=== PATIENT | male | born 1945 | race Caucasian/White ===

== ENCOUNTER 2017-12-07 17:59 | Inpatient (IN) | payer MEDICARE ==
[~2017-12-07] VITALS: Ht 177.8 cm; Wt 77.1 kg
[~2017-12-07 17:59] MED LIST: ARTHRITIS TYLENOL; ASPIR 8181 MG PO; BENADRYL; CIMZIA400 MG/2 M; CONZIP200 MG PO; TRAMADOL PO; Z.0.AMLODIPINE BESY1 PO; Z.0.ATENOLOL50 MG PO; Z.0.FOLIC ACID1 MG PO; Z.0.OMEPRAZOLE40 MG PO; Z.0.PREDNISONE2.5 MG PO; Z.0.SAVELLA50 MG PO; Z.1.FISH OIL 1,2001 PO; Z.1.METHOTREXATE2.5 PO; [UNRECOGNIZED DRUG - OTHER] PO
[2017-12-07] MEDS ORDERED: VITAMIN D31 GM (19:30)
[2017-12-07] MEDS ORDERED: NEXIUM40 MG (19:30)
[2017-12-07] MEDS ORDERED: FISH OIL 1,0001 EAC3 (19:30)
[2017-12-07] MEDS ORDERED: VITAMINS (19:30)
[2017-12-07] MEDS ORDERED: CONZIP200 MG (19:30)
[2017-12-07] MEDS ORDERED: SAVILLA (19:30)
[2017-12-07] MEDS ORDERED: DIOVAN160 MG PO (19:30)
[2017-12-07] MEDS ORDERED: FOLIC ACID1 MG PO (19:30)
[2017-12-07] MEDS ORDERED: ATENOLOL50 MG (19:30)
[2017-12-07] MEDS ORDERED: ITRACONAZOLE100 MG (19:30)
[2017-12-07] MEDS ORDERED: AMLODIPINE BESYL5 MG PO (19:30)
[2017-12-07] MEDS ORDERED: VOLTAREN100 GM (19:30)
[2017-12-07] MEDS ORDERED: ASPIR 8181 MG (19:30)
[2017-12-07] MEDS ORDERED: PREDNISONE5 MG (19:30)
[2017-12-07 19:52] LABS: BASOPHILS # (AUTO) 0.1 (0.0-0.1); BASOPHILS % 0.6 % (0.0-1.0); EOSINOPHILS # (AUTO) 0.3 (0.0-0.4); EOSINOPHILS % 2.2 % (0.0-6.0); HEMATOCRIT 42.1 % (38.2-49.6); HEMOGLOBIN 13.9 g/dL (14.0-18.0); LYMPHOCYTES # (AUTO) 0.9 (1.0-3.2); LYMPHOCYTES % 8.2 % (18.0-39.1); MEAN CORPUSCULAR HEMOGLOBIN 31.2 pg (28-32); MEAN CORPUSCULAR VOLUME 94.4 fL (81-99); MONOCYTES # (AUTO) 0.6 (0.2-0.8); MONOCYTES % 5.2 % (4.4-11.3); NEUTROPHILS # (AUTO) 9.5 (2.1-6.9); PLATELET COUNT 209 x10e3/uL (140-360); RED BLOOD COUNT 4.46 x10e6/uL (4.3-5.7); RED CELL DISTRIBUTION WIDTH 13.5 % (11.7-14.4)
[2017-12-07 20:00] VITALS: BP 134/72
[2017-12-07] MEDS ORDERED: METOPROLOL SUCC50 MG PO (20:08)
[2017-12-07 20:15] LABS: ALBUMIN 3.4 g/dL (3.5-5.0); ALBUMIN/GLOBULIN RATIO 1.2 (0.8-2.0); ANION GAP 14.7 mmol/L (8-16); CALCIUM 9.2 mg/dL (8.4-10.2); CREATININE, SERUM 2.01 mg/dL (0.72-1.25); POTASSIUM 4.7 mmol/L (3.5-5.1)
[2017-12-07] MEDS ORDERED: VOLTAREM TP (20:44)
[2017-12-07] MEDS ORDERED: IBUPROFEN 600 MG TAB GT SCH (21:00)
[2017-12-07] MEDS ORDERED: SODIUM CHLORIDE 0.9% 250ML 250 ML ONE (21:15)
[2017-12-07] MEDS: CEFEPIME HCL 1 GM VIAL IV SCH (21:27)
[2017-12-07] MEDS: VANCOMYCIN 1GM/NS 250 ML 250 ML IV SCH (21:27)
[2017-12-07 23:40] VITALS: BP 134/72
[2017-12-08] VITALS (7 sets, daily range): BP systolic 120–147; BP diastolic 62–92
[2017-12-08] MEDS: CEFEPIME HCL 1 GM VIAL IV SCH ×2 (08:09→22:57)
[2017-12-08] MEDS: [UNRECOGNIZED DRUG - OTHER] PO SCH (09:00)
[2017-12-08] MEDS ORDERED: PREDNISONE 2.5 MG PO SCH (09:00)
[2017-12-08] MEDS: OMEGA PO SCH (09:00)
[2017-12-08] MEDS: FATTY ACIDS PO SCH (09:00)
[2017-12-08] MEDS: FISH OIL PO SCH (09:00)
[2017-12-08] MEDS ORDERED: [UNRECOGNIZED DRUG - OTHER] SCH (09:00)
[2017-12-08] MEDS: FOLIC ACID 1 MG TAB PO SCH (09:20)
[2017-12-08] MEDS: VALSARTAN 160 MG TAB PO SCH (09:20)
[2017-12-08] MEDS: PREDNISONE 5 MG TAB PO SCH ×2 (09:20→17:31)
[2017-12-08] MEDS: OMEGA 3 POLYUNSAT FATTY ACIDS 1000 MG SOFTGEL PO SCH (09:20)
[2017-12-08] MEDS: AMLODIPINE BESYLATE 5 MG TAB PO SCH (09:20)
[2017-12-08] MEDS: ATENOLOL 50 MG TAB PO SCH (09:20)
[2017-12-08] MEDS: SAVELLA 50MG TAB PO SCH ×2 (09:20→17:31)
[2017-12-08] MEDS: ASPIRIN 81 MG CHEW TAB PO SCH (09:20)
[2017-12-08] MEDS: MULTIVITAMINS/MINERALS TAB PO SCH (09:20)
[2017-12-08] MEDS: PANTOPRAZOLE SOD 40 MG TABEC PO SCH (09:20)
[2017-12-08] MEDS: METOPROLOL SUCCINATE 50 MG TAB XL PO SCH (10:12)
[2017-12-08] MEDS: ITRACONAZOLE 100 MG CAP PO SCH ×2 (10:20→17:31)
[2017-12-08] MEDS: VANCOMYCIN 1GM/NS 250 ML 250 ML IV SCH (22:57)
[2017-12-09] VITALS (7 sets, daily range): BP systolic 113–139; BP diastolic 65–89
--- NOTE | 2017-12-09 07:42 | History and Physical ---
REASON FOR ADMISSION: Redness and swelling of the leg. HISTORY OF PRESENT ILLNESS: This patient is a 72-year-old white male who I first met on October 12, 2017. He was referred to me because there was infection in his leg. He was seeing because he is immunocompromised. The patient grew pathology that was suggestive for a fungal infection versus AFB. The patient was referred to me because of that. The patient had this redness and rash on his right leg for some time. He does have underlying history of seborrheic keratosis. The patient has history of chronic kidney disease, hypertension, arthritis, coronary artery disease status post cardiac stent placement, osteoarthritis, low back surgery. Originally, we were waiting on the cultures and sensitivity, but I was concerned about AFB versus fungal. The patient does have underlying history of rheumatoid arthritis. He is on methotrexate and . I recommended to stop the immunomodulator medication, which he did. We waited 6 weeks and nothing grew, but review of pathology was consistent with fungal, so we treated him with itraconazole. He is coming to my office with worsening of the leg with redness and swelling, and there is pus coming from his leg, and so the patient was immunocompromised, and I felt he needed to be admitted for IV antibiotics, as he is going to do. The patient denies any history of trauma. He said he has been draining pus from his leg for the last few days before he came to see me. The patient is being admitted. PAST MEDICAL HISTORY: Rheumatoid arthritis. Infection of his leg. Chronic kidney disease. PAST SURGICAL HISTORY: As above. ALLERGIES: NKA. FAMILY HISTORY: Hypertension. SOCIAL HISTORY: Does not smoke, no drug abuse, no alcohol abuse. REVIEW OF SYSTEMS: Generally he is feeling fair is having some chills weak. HEENT he is arthritis pain is acting up. REVIEW OF SYSTEMS: GENERAL: He is feeling fair. He is having some chills, weak. His arthritis pain is acting up. HEENT: No visual changes, hearing changes. GI: There is no nausea, no vomiting, no diarrhea. CARDIAC: There is no arrhythmia. NEUROLOGIC: No seizure activity. SKIN: Besides the rash which he had on his legs, he denies any. PHYSICAL EXAMINATION GENERAL: Alert, oriented, does not seem to be in any acute distress. VITAL SIGNS: Stable, currently afebrile. HEENT: Not icteric. NECK: Supple. CHEST: Clear. HEART: S1 and S2, no murmur. ABDOMEN: Soft. EXTREMITIES: On the right leg, there is erythema, edema, and induration. I was able to squeeze less than 1 mL of pus. LABORATORY DATA: White count 11.43, hemoglobin 13.9, hematocrit 42. His platelets 209,000. Sodium 142, potassium 4.7, ____ 2.10, glucose 108. MEDICATIONS: He is on multivitamins, Diovan, prednisone 5 mg daily, fish oil, folic acid, Protonix. He is also on metoprolol succinate and as mentioned above. IMPRESSION: Cellulitis of the leg in a patient immunocompromised. Underlying chronic disease. Rheumatoid arthritis. History of fungal infection. RECOMMENDATIONS: Will put him on vancomycin and cefepime. Obtain wound for culture and sensitivity. Continue with itraconazole. Will follow with you. Job#: [id number]
[2017-12-09] MEDS: CEFEPIME HCL 1 GM VIAL IV SCH (08:10)
[2017-12-09] MEDS: FISH OIL PO SCH (09:00)
[2017-12-09] MEDS: [UNRECOGNIZED DRUG - OTHER] PO SCH (09:00)
[2017-12-09] MEDS: OMEGA PO SCH (09:00)
[2017-12-09] MEDS: FATTY ACIDS PO SCH (09:00)
[2017-12-09] MEDS: SAVELLA 50MG TAB PO SCH ×2 (09:03→17:34)
[2017-12-09] MEDS: AMLODIPINE BESYLATE 5 MG TAB PO SCH (09:03)
[2017-12-09] MEDS: VALSARTAN 160 MG TAB PO SCH (09:03)
[2017-12-09] MEDS: FOLIC ACID 1 MG TAB PO SCH (09:03)
[2017-12-09] MEDS: PANTOPRAZOLE SOD 40 MG TABEC PO SCH (09:03)
[2017-12-09] MEDS: MULTIVITAMINS/MINERALS TAB PO SCH (09:03)
[2017-12-09] MEDS: ASPIRIN 81 MG CHEW TAB PO SCH (09:03)
[2017-12-09] MEDS: OMEGA 3 POLYUNSAT FATTY ACIDS 1000 MG SOFTGEL PO SCH (09:03)
[2017-12-09] MEDS: ITRACONAZOLE 100 MG CAP PO SCH ×2 (09:03→17:34)
[2017-12-09] MEDS: ATENOLOL 50 MG TAB PO SCH (09:03)
[2017-12-09] MEDS: PREDNISONE 5 MG TAB PO SCH ×2 (09:03→17:34)
[2017-12-09] MEDS: METOPROLOL SUCCINATE 50 MG TAB XL PO SCH (09:05)
[2017-12-09] MEDS: VANCOMYCIN 1GM/NS 250 ML 250 ML IV SCH (20:27)
[2017-12-10] VITALS (9 sets, daily range): BP systolic 108–159; BP diastolic 68–84
[2017-12-10] MEDS: ASPIRIN 81 MG CHEW TAB PO SCH (09:01)
[2017-12-10] MEDS: MULTIVITAMINS/MINERALS TAB PO SCH (09:02)
[2017-12-10] MEDS: OMEGA 3 POLYUNSAT FATTY ACIDS 1000 MG SOFTGEL PO SCH (09:02)
[2017-12-10] MEDS: SAVELLA 50MG TAB PO SCH ×2 (09:02→16:46)
[2017-12-10] MEDS: PREDNISONE 5 MG TAB PO SCH ×2 (09:02→16:46)
[2017-12-10] MEDS: METOPROLOL SUCCINATE 50 MG TAB XL PO SCH (09:02)
[2017-12-10] MEDS: ATENOLOL 50 MG TAB PO SCH (09:02)
[2017-12-10] MEDS: PANTOPRAZOLE SOD 40 MG TABEC PO SCH (09:02)
[2017-12-10] MEDS: AMLODIPINE BESYLATE 5 MG TAB PO SCH (09:02)
[2017-12-10] MEDS: VALSARTAN 160 MG TAB PO SCH (09:02)
[2017-12-10] MEDS: ITRACONAZOLE 100 MG CAP PO SCH (09:02)
[2017-12-10] MEDS: FOLIC ACID 1 MG TAB PO SCH (09:02)
[2017-12-10] MEDS: CEFEPIME HCL 1 GM VIAL IV SCH (09:49)
[2017-12-10] MEDS: MUPIROCIN 2% OINT 22 GM TUBE TOP SCH (09:49)
[2017-12-10 10:35] LABS: BASOPHILS # (AUTO) 0.1 (0.0-0.1); BASOPHILS % 0.8 % (0.0-1.0); EOSINOPHILS # (AUTO) 0.4 (0.0-0.4); EOSINOPHILS % 4.1 % (0.0-6.0); HEMATOCRIT 41.6 % (38.2-49.6); LYMPHOCYTES # (AUTO) 1.8 (1.0-3.2); LYMPHOCYTES % 16.6 % (18.0-39.1); MEAN CORPUSCULAR HEMOGLOBIN 31.2 pg (28-32); MEAN CORPUSCULAR HGB CONC 33.2 g/dL (31-35); MEAN CORPUSCULAR VOLUME 94.1 fL (81-99); MONOCYTES # (AUTO) 1.1 (0.2-0.8); MONOCYTES % 10.2 % (4.4-11.3); NEUTROPHILS # (AUTO) 7.2 (2.1-6.9); NEUTROPHILS % 67.4 % (38.7-80.0); PLATELET COUNT 199 x10e3/uL (140-360); RED BLOOD COUNT 4.42 x10e6/uL (4.3-5.7); RED CELL DISTRIBUTION WIDTH 13.1 % (11.7-14.4)
[2017-12-10 10:46] LABS: ANION GAP 14.7 mmol/L (8-16); CALCIUM 9.6 mg/dL (8.4-10.2); CREATININE, SERUM 1.76 mg/dL (0.72-1.25); POTASSIUM 4.7 mmol/L (3.5-5.1)
[2017-12-10 10:55] LABS: HEMOGLOBIN 13.8 g/dL (14.0-18.0)
[2017-12-10] MEDS ORDERED: LIDOCAINE 1% W/EPINEPHRINE 20 ML VIAL ONE (13:34)
[2017-12-10] MEDS ORDERED: MUPIROCIN 2% OINT 22 GM TUBE ONE (14:23)
[2017-12-10] MEDS ORDERED: ACETAMINOPHEN/CODEINE 300MG - 30MG TAB PO PRN (15:15)
[2017-12-10] MEDS ORDERED: ONDANSETRON HCL INJ 2 MG/ML VIAL ONE (17:44)
[2017-12-10] MEDS ORDERED: PROPOFOL IV EMULSION 10 MG/ML 20 ML VIAL ONE (17:44)
[2017-12-10] MEDS ORDERED: FENTANYL CITRATE/PF 100MCG/2 ML INJ ONE (17:47)
[2017-12-10] MEDS ORDERED: MIDAZOLAM HCL 2 MG/2 ML VIAL ONE (17:47)
[2017-12-10] MEDS: VANCOMYCIN 1GM/NS 250 ML 250 ML IV SCH (21:49)
[2017-12-11 04:00] VITALS: BP 103/60
[2017-12-11 07:00] VITALS: BP 133/80
[2017-12-11 07:50] VITALS: BP 133/80
[2017-12-11] MEDS: CEFEPIME HCL 1 GM VIAL IV SCH (08:59)
[2017-12-11] MEDS: FOLIC ACID 1 MG TAB PO SCH (08:59)
[2017-12-11] MEDS: ASPIRIN 81 MG CHEW TAB PO SCH (08:59)
[2017-12-11] MEDS: VALSARTAN 160 MG TAB PO SCH (08:59)
[2017-12-11] MEDS: METOPROLOL SUCCINATE 50 MG TAB XL PO SCH (09:00)
[2017-12-11] MEDS ORDERED: ITRACONAZOLE 100 MG CAP PO SCH (09:00)
[2017-12-11] MEDS: SAVELLA 50MG TAB PO SCH (09:00)
[2017-12-11] MEDS: OMEGA 3 POLYUNSAT FATTY ACIDS 1000 MG SOFTGEL PO SCH (09:00)
[2017-12-11] MEDS: MULTIVITAMINS/MINERALS TAB PO SCH (09:00)
[2017-12-11] MEDS: ATENOLOL 50 MG TAB PO SCH (09:00)
[2017-12-11] MEDS: PREDNISONE 5 MG TAB PO SCH (09:00)
[2017-12-11] MEDS: AMLODIPINE BESYLATE 5 MG TAB PO SCH (09:00)
[2017-12-11] MEDS: MUPIROCIN 2% OINT 22 GM TUBE TOP SCH (09:00)
[2017-12-11] MEDS: PANTOPRAZOLE SOD 40 MG TABEC PO SCH (09:00)
[2017-12-11] MEDS ORDERED: DOXYCYCLINE HY100 MG PO (09:07)
[2017-12-11] MEDS ORDERED: ITRACONAZOLE100 MG PO (09:07)
[2017-12-11] MEDS ORDERED: CIPRO500 MG PO (09:08)
--- NOTE | 2017-12-12 03:23 | Discharge Summary ---
Mr. Fung is a pleasant 72-year-old gentleman with rheumatoid arthritis, immunocompromised, who was referred to Dr. Roger secondary to cellulitis of the lower extremity, concern was AFB and fungal. Immunosuppressant medications were stopped. Biopsy was done. After 6 weeks, pathology came back consistent with fungal infection. The patient was treated with itraconazole. Patient returned back to the office again complaining of an infection and cellulitis of the right lower extremity with the pus coming out from the nodules. Therefore, the patient was admitted to [facility] for evaluation and treatment. The patient was continued with the home medication, also itraconazole, cefepime, and vancomycin. It is noteworthy to mention that the patient has a history of seborrheic keratosis, chronic kidney disease, hypertension, rheumatoid arthritis, coronary artery disease, and cardiac stent placement. Plastic surgery was consulted. Wound culture came back negative so far; however, biopsy was done yesterday. Labs were monitored during the hospitalization and cellulitis of the lower extremity looks much better in redness and swelling. We will discharge the patient with doxycycline and Cipro for 2 weeks and itraconazole for 1 month. Patient is instructed to follow up with Dr. Roger in the office in 2 weeks. All of the discharge plans were discussed with the patient in the room, also discussed with Dr. Roger and the nurse. We will go ahead and remove all the lines and discharge the patient, have him continue the home medication and antibiotics and antifungal as mentioned above. The patient is being discharged in fair and stable condition. His vital signs at the time of discharge; his temperature was 96.5, pulse of 61, respirations 18, blood pressure 133/80, clinically in no acute distress, alert and oriented x3. Dictated by: CHRISTINA Navarrete Job#: [id number] TED
--- NOTE | 2017-12-14 14:58 | Operative Report ---
DATE OF PROCEDURE: PREOPERATIVE DIAGNOSIS: Cellulitis lower extremities. POSTOPERATIVE DIAGNOSIS: Pending final pathology and cultures. PROCEDURE PERFORMED: Surgical biopsy of skin and subcutaneous tissues right lower extremity x3. ANESTHESIA: Local with sedation. HISTORY: The patient is a 72-year-old male who was admitted for a cellulitis of an unknown etiology. He is apparently immunosuppressed, and there is concern that the presence of nodules in the right lower extremity could be either acid-fast bacilli or a fungal infection due to his immunocompromised state. The ID team has asked that we obtain surgical biopsies for anatomic pathology as well as multiple cultures. The risks, benefits and alternatives of treatment were discussed with the patient and the family. They are prepared to undergo the procedures outlined. DETAILS OF PROCEDURE: Patient was marked preoperatively in the holding area. He was brought to the operating theater. After the induction of adequate IV sedation, all of the proposed biopsy sites were then infiltrated with 1% Xylocaine with epinephrine. He was prepped and draped in a supine position, and a time out was performed. The procedure was begun by utilizing a 3-mm punch in the locations that were marked. The punch biopsies were full thickness through the skin and subcutaneous tissues. They were then sent for their respective studies. The wounds were closed with 4-0 nylon in an interrupted horizontal mattress fashion. Bactroban ointment and sterile dressings were applied. The estimated blood loss for the procedure was minimal. He was returned to the recovery room in satisfactory condition and then back to his hospital bed for further care and treatment. Job#: [id number] EV
--- OUTSIDE RECORDS SUMMARY | 2017-12-21 09:38 | XMS REPORT ---
Author Author [facility] Address Unknown Phone Unavailable Care Team Providers Care Breaker Oiler Name Role Phone NORA ROACH Unavailable Unavailable Problems This patient has no known problems. Allergies, Adverse Reactions, Alerts This patient has no known allergies or adverse reactions. Medications This patient has no known medications. Results Test Description Test Time Test Comments Text Results Atomic Results Result Comments CHEST 2 VIEWS [place] [address] Patient Name: JERO GORDILLO MR #: [id number] : 1945 Age/Sex: 71/M Req #: [id number] Adm Physician: NORA ROACH MD Ordered by: JEFF JIMENEZ MD Report #: [id number] Location: [facility] Room/Bed: [place] [address] Procedure: [id number] DX/CHEST 2 VIEWS Exam Date: Exam Time: REPORT STATUS: Signed CHEST 2 VIEWS, Technique: CHEST 2 VIEWS Comparison: None Clinical history: Preoperative DISCUSSION: Unremarkable appearance of the heart, mediastinum, lungs and pleural spaces. Degenerative changes and mild curvature of the spine are noted. IMPRESSION: No acute abnormality. Signed by: Dr Julian Hogan MD on 01/07/2017 6:43 AM Dictated By: JULIAN HOGAN MD Transcribed By: ROBER on 01/07/17642 COPY TO: JEFF JIMENEZ MD CT ABDOMEN/PELVIS WO [facility] [address] [address] Patient Name: JERO GORDILLO MR #: [id number] : 1945 Age/Sex: 71/M Req #: [id number] Adm Physician: NORA ROACH MD Ordered by: ZARA SULLIVAN MD Report #: [id number] Location: [facility] Room/Bed: [place] [address] Procedure: [id number] CT/CT ABDOMEN/PELVIS WO Exam Date: 01/05/17 Exam Time: 1333 REPORT STATUS: Signed EXAM: CT Abdomen and Pelvis WITHOUT contrast INDICATION: COMPARISON: None. TECHNIQUE: Abdomen and pelvis were scanned utilizing a multidetector helical scanner from the lung base to the pubic symphysis without administration of IV contrast. Absence of intravenous contrast decreases sensitivity for detection of focal lesions and vascular pathology. Coronal and sagittal reformations were obtained. Routine protocol was performed. IV CONTRAST: None ORAL CONTRAST: Water COMPLICATIONS: None RADIATION DOSE: Total DLP: 388.5 mGy*cm Estimated effective dose: (DLP x 0.015 x size factor) mSv CTDIvol has been reviewed. It is below the limits set by the Radiation Protocol Committee (RPC). FINDINGS: LINES and TUBES: None. LOWER THORAX: Unremarkable. Bilateral Bochdalek hernias, left more than right. HEPATOBILIARY: Unenhanced liver is unremarkable. No biliary ductal dilation. GALLBLADDER: No radio-opaque stones or sludge. No wall thickening. SPLEEN: No splenomegaly. PANCREAS: No focal masses or ductal dilatation. ADRENALS: No adrenal nodules KIDNEYS/URETERS: Atrophic right kidney. No hydronephrosis. 5 mm left superior pole calculus. There is adjacent 3 mm left periportal calculus. 3 mm left midpole calculus. 7 mm left mid to inferior pole calculus. GI TRACT: No abnormal distention, wall thickening, or evidence of bowel obstruction. Colonic diverticulosis without evidence of diverticulitis. Appendix is normal. Small hiatal hernia. PELVIC ORGANS/BLADDER: Bladder contains air and fluid fluid level with hyperdense fluid in the bottom. There is Holloway catheter in place. No perivesical fat stranding. LYMPH NODES: No lymphadenopathy. VESSELS: Moderate aortoiliac atherosclerotic disease. PERITONEUM / RETROPERITONEUM: No free air or fluid. BONES: Well-corticated proximal left femur lucency, probably benign. L4-L5 and L3-L4 disc spacers in place. L5-S1 degenerative changes. There are also degenerative changes of lower thoracic spine. SOFT TISSUES: Unremarkable. IMPRESSION: 1. Subcentimeter left nephrolithiasis. No evidence of obstructing urolithiasis. 2. Atrophic right kidney. 3. Bladder is distended, despite presence of Holloway catheter, containing air and fluid/fluid level which is probably dependent blood clot. Underlying bladder mass cannot be entirely excluded. Recommend correlation with cystoscopy. 4. Colonic diverticulosis without evidence of diverticulitis. Signed by: Dr. Don Cassidy MD on 01/05/2017 2:25 PM Dictated By: DON CASSIDY MD 24 Transcribed By: ROBER on 01/05/171424 COPY TO: ZARA SULLIVAN MD RENAL RETROPERITONEAL COMP [place] [address] Patient Name: JERO GORDILLO MR #: [id number] : 1945 Age/Sex: 71/M Req #: [id number] Adm Physician: NORA ROACH MD Ordered by: NORA ROACH MD Report #: [id number] Location: [facility] Room/Bed: [place] [address] Procedure: [id number] US/US RENAL RETROPERITONEAL COMP Exam Date: Exam Time: REPORT STATUS: Signed PROCEDURE: US RETROPERITONEAL ( KIDNEY ). COMPARISON: Abdominal CT 01/05/2017. INDICATIONS: GEORGINA vs. CKD TECHNIQUE: Bueno-scale and color sonographic images of the bilateral kidneys and bladder where obtained in transverse and longitudinal planes. FINDINGS: RIGHT KIDNEY: 6.9 x 3.9 x 3.6 cm, cortex 0.6 cm Cysts: None Solid masses: None Stones: None Hydronephrosis: None Echogenicity: Increased LEFT KIDNEY: 11.4 x 5.8 x 5.1 cm, cortex 1.2 cm Cysts: None Solid masses: None Stones: Small non-obstructing calculi are better seen on the prior CT. Hydronephrosis: None Echogenicity: Normal Bladder: Holloway catheter in place Prostate: Not visualized CONCLUSION: No hydronephrosis. Atrophic echogenic right kidney. Dictated by: Ricardo Alvarenga M.D. on 01/06/2017 at 16:25 Electronically approved by: Ricardo Alvarenga M.D. on 01/06/2017 at 16:25 Dictated By: RICARDO ALVARENGA MD [id number] Transcribed By: DOUGLAS on 01/06/17 4085 COPY TO: NORA ROACH MD
--- OUTSIDE RECORDS SUMMARY | 2017-12-21 09:38 | XMS REPORT | Summary of Care ---
Author Organization Unknown Address Unknown Phone Unavailable Encounter HQ Karen(VISH) [id number] Date(s): 08/15/13 - 08/15/13 [facility] [address] Discharge Disposition: Home Physician Attending: Maranda Rivera MD Reason for Visit 719.44 Problem List No data available for this section Allergies, Adverse Reactions, Alerts Substance Reaction Severity Status NKDA Active Medications No data available for this section Medications Administered During Your Visit No data available for this section Immunizations No data available for this section
--- OUTSIDE RECORDS SUMMARY | 2017-12-21 09:38 | XMS REPORT | Summary of Care ---
Author Author [facility] Organization [facility] Address Unknown Phone Unavailable Encounter HQ Encntr_alias(FIN) [id number] Date(s): 09/29/16 - 10/28/16 [facility] [address] [place] [address]- [phone] Discharge Disposition: Home or Self Care Attending Physician: Maranda Rivera MD Vital Signs No data available for this section Problem List No data available for this section Allergies, Adverse Reactions, Alerts Substance Reaction Severity Status NKDA Active Medications No data available for this section Results No data available for this section Immunizations No data available for this section Procedures No data available for this section Social History No data available for this section Assessment and Plan No data available for this section
--- OUTSIDE RECORDS SUMMARY | 2017-12-21 09:38 | XMS REPORT | Continuity of Care Document ---
Author Author Aditya parmar [facility] Interface Address Unknown Phone Unavailable Problems Problem Status Onset Date Classification Date Reported Comments Source DX: I12.9=HYPERTENSIVE CHRONIC KIDNEY DI Active 10/20/2017 [facility] M79.642 Active 09/29/2016 [facility] HYPERTENSIVE CHRONIC KIDNEY DISEASE [address] Active [facility] 719.44 Active [facility] Medications Medication Details Route Status Patient Instructions Ordering Provider Order Date Source Allergies, Adverse Reactions, Alerts Substance Category Reaction Severity Reaction type Status Date Reported Comments Source Immunizations Immunization Date Given Site Status Last Updated Comments Source Results Order Name Results Value Reference Range Date Interpretation Comments Source Abdomen/Pelvis wo IV contrast CT Abdomen/Pelvis wo IV contrast CT Clinical Indication: - I12.9 Hypertensive chronic kidney disease with stage 1 through stage 4 chronic kidney disease, or unspecified chronic kidney disease; Comparison: None TECHNIQUE: Helical imaging was performed diaphragm through the symphysis with multiplanar reformations obtained. IV CONTRAST: None GI CONTRAST: None CT imaging performed at this location utilizes radiation dose optimization techniques which include one or more of the following: -Automated exposure control -Adjustment of the mA and/or kV according to patient size -Use of iterative reconstruction technique CT Radiation Dose DLP 449 mGy-cm FINDINGS: LOWER CHEST: The lung bases are clear. SOLID ORGANS: The noncontrast features of the liver, spleen, pancreas, adrenal glands and gallbladder are not remarkable. The right kidney is markedly atrophic. On the left kidney demonstrates mild atrophy. There are 5 small nonobstructive calyceal calculi within the left kidney measuring up to 4 mm. No hydronephrosis. No solid renal lesion is otherwise suspected. BOWEL: No bowel obstruction or distention. Generous colonic stool volume suggesting constipation. Normal appendix. Sigmoid diverticulosis is prominent, however there is no inflammation to suggest diverticulitis or colitis. PERITONEUM: No free intraperitoneal fluid or air. RETROPERITONEUM: No adenopathy. The aorta is nonaneurysmal. Scattered abdominal aortic atherosclerotic plaque. PELVIS: Mildly enlarged prostate. No other pelvic mass. The urinary bladder is normal. MUSCULOSKELETAL: Advanced lumbar degenerative changes. Previous discectomy with metallic disc hardware at L3-4 and L4-5. IMPRESSION: Severely atrophic right kidney. Mildly atrophic left kidney. No hydronephrosis. Nonobstructive left nephrolithiasis. SL: [id number] 11/03/2017 - - Read by: Francisco Beasley MD Dictated Date/time: 11/03/17 15:39 Electronically Signed by: Francisco Beasley MD 11/03/17 15:44 FINAL REPORT [facility] Hand 2 views Bilateral DX Hand 2 views Bilateral DX Patient Name: JERO GORDILLO : 1945; Age: 71 years Male MR: [id number] Study: Hand 2 views Bilateral DX 09/29/2016 2:26 PM CDT CLINICAL INDICATION: M79.642 Pain in left hand M79.641 Pain in right hand - M79.642 Pain in left hand M79.641 Pain in right hand COMPARISON: Bilateral hand radiographs on 03/29/2012 FINDINGS: Views and laterality: Bilateral hands 2 views each Right: No displaced fracture or dislocation. The visualized joints are intact. No significant joint space narrowing or erosions. No gross soft tissue abnormalities. Left: No displaced fracture or dislocation. The visualized joints are intact. No significant joint space narrowing or erosions. No gross soft tissue abnormalities. IMPRESSION: No acute bony abnormalities. No significant change since 03/29/2012. SL: [id number] 09/29/2016 - - Read by: Kael Dueñas MD Dictated Date/time: 09/30/16 10:22 Electronically Signed by: Kael Dueñas MD 09/30/16 10:24 FINAL REPORT [facility] Hand AP lateral Hand AP lateral Examination: Left hand, 2 views History: 719.44 pain in joint hand Comparison: 01/15/2005 Findings: Multiple views of the left hand show no acute bony fracture, joint dislocation, or suspicious osseous erosion. Joint spaces are well preserved. Bony mineralization is normal. Soft tissue swelling of the index finger is seen. IMPRESSION: No acute bony abnormality of the left hand. SL: 14 08/15/2013 - - Read by: Sb Baxter MD Dictated Date/time: 08/15/13 11:29 Electronically Signed by: Sb Baxter MD 06/10/14 11:31 FINAL REPORT [facility] Vital Signs Vital Sign Value Date Comments Source Encounters Location Location Details Encounter Type Encounter Number Reason For Visit Attending Provider ADM Date DC Date Status Source [facility] Outpatient [id number] Maranda Rivera 08/15/2013 08/16/2013 [facility] Recurring [id number] Maranda Rivera 09/29/2016 10/29/2016 [facility] Procedures Procedure Code Date Perfomer Comments Source
--- OUTSIDE RECORDS SUMMARY | 2017-12-21 09:38 | XMS REPORT | Clinical Summary ---
Author Author Celso [facility] Organization [facility] Address Unknown Phone Unavailable Care Team Providers Care Energy Project Manager Name Role Phone Rik Barcaly MD PCP Unavailable Allergies Active Allergy Reactions Severity Noted Date Comments No Known Drug Allergies 06/11/2015 Current Medications Prescription Sig. Disp. Refills Start End Date Status Date VOLTAREN 1 % gel 1 application 4 (four) 03/19/19 Active times a day. 16 esomeprazole (NexIUM) 40 Take 40 mg by mouth every 05/04/19 Active MG capsule morning before breakfast. 16 folic acid (FOLVITE) 1 MG Take 1 mg by mouth daily. 05/26/19 Active tablet 16 methotrexate 2.5 MG 5 tablets daily 06/18/19 Active tablet 16 predniSONE (DELTASONE) 5 Take 5 mg by mouth 2 06/18/19 Active MG tablet (two) times a day. 16 CONZIP 200 mg capsule,ER 1 tablet daily. 03/19/19 Active biphase 24 hr 25-75 16 omega-3 fatty acids-fish 1 tablet daily. Take 1 03/08/19 Active oil 360-1,200 mg capsule capsule(s) every day by 11 oral route. certolizumab pegol Inject 200 mg under the Active (CIMZIA) 400 mg/2 mL (200 skin every 28 days. mg/mL x 2) syringe kit milnacipran (SAVELLA) 100 Take 1 tablet by mouth 30 tablet 5 06/25/19 Active mg tablet daily. 16 amLODIPine (NORVASC) 10 Take 0.5 tablets (5 mg 90 tablet 0 08/10/19 Active mg tablet total) by mouth daily. 18 hydroCHLOROthiazide Take 1 tablet (25 mg 30 tablet 11 08/20/20 08/21/19 Active (HYDRODIURIL) 25 MG total) by mouth daily. 18 19 tablet metoprolol succinate XL Take 1 tablet (100 mg 30 tablet 11 08/21/19 08/21/19 Active (TOPROL XL) 100 mg 24 hr total) by mouth daily. 18 19 tablet spironolactone Take 1 tablet (50 mg 30 tablet 11 09/11/19 09/11/19 Active (ALDACTONE) 50 MG tablet total) by mouth daily. 18 19 valsartan (DIOVAN) 160 MG TAKE 1 TABLET DAILY 90 tablet 3 10/02/19 Active tablet 18 clopidogrel (PLAVIX) 75 Take 75 mg by mouth 11 06/14/19 08/10/19 Discontin mg tablet daily. 16 18 ued dutasteride (AVODART) 0.5 Take 0.5 mg by mouth 06/05/19 08/10/19 Discontin mg capsule daily. 16 18 ued atenolol (TENORMIN) 50 MG Take 1 tablet (50 mg 90 tablet 3 07/29/19 03/12/19 Discontin tablet total) by mouth once 17 18 ued daily. valsartan (DIOVAN) 160 MG Take 1 tablet (160 mg 90 tablet 3 07/29/19 03/12/19 Discontin tablet total) by mouth once 17 18 ued daily. atenolol (TENORMIN) 50 MG Take 1 tablet (50 mg 90 tablet 1 03/12/19 05/30/19 Discontin tablet total) by mouth once 18 18 ued daily. valsartan (DIOVAN) 160 MG Take 1 tablet (160 mg 90 tablet 1 03/12/19 09/01/19 Discontin tablet total) by mouth once 18 18 ued daily. amLODIPine (NORVASC) 10 Take 10 mg by mouth 03/16/19 Discontin mg tablet daily. 18 ued amLODIPine (NORVASC) 10 Take 1 tablet (10 mg 90 tablet 0 03/16/19 06/03/19 Discontin mg tablet total) by mouth daily. 18 18 ued atenolol (TENORMIN) 50 MG TAKE 1 TABLET DAILY 90 tablet 3 05/30/19 08/10/19 Discontin tablet 18 18 ued amLODIPine (NORVASC) 10 TAKE 1 TABLET DAILY 90 tablet 0 06/03/19 08/10/19 Discontin mg tablet 18 18 ued atenolol (TENORMIN) 50 MG Take 1 tablet (50 mg 180 tablet 3 08/10/19 08/21/19 Discontin tablet total) by mouth 2 (two) 18 18 ued times a day. amLODIPine (NORVASC) 10 TAKE 1 TABLET DAILY 90 tablet 0 08/31/19 09/01/19 Discontin mg tablet 18 18 ued valsartan (DIOVAN) 160 MG Take 2 tablets (320 mg 90 tablet 1 09/01/19 10/02/19 Discontin tablet total) by mouth daily. 18 18 ued Active Problems Problem Noted Date Lumbosacral radiculopathy 08/09/2017 Claudication ([facility]) 06/11/2015 Constipation 06/11/2015 Depression 06/11/2015 Eczema 06/11/2015 Disc disorder of lumbar region 04/11/2013 Allergic rhinitis 04/11/2013 Elevated prostate specific antigen (PSA) 04/29/2012 Essential tremor 10/22/2011 Angina pectoris ([facility]) 07/23/2011 Chronic kidney disease, stage III (moderate) ([facility]) 07/23/2011 Essential hypertension 11/25/2010 Malaise and fatigue 11/25/2010 Anemia 09/01/2010 Gastroesophageal reflux disease 09/01/2010 Rheumatoid arthritis ([facility]) 09/01/2010 Encounters Date Type Specialty Care Team Description 10/01/2017 Refill Internal Medicine Rik Barclay MD 09/10/2017 Orders Only Access Rik Barclay MD 09/10/2017 Telephone Internal Rik Davenport MD 08/31/2017 Orders Only Internal Rik Davenport MD 08/31/2017 Orders Only Internal Rik Davenport MD 08/30/2017 Refill Internal Rik Davenport MD 08/20/2017 Orders Only Internal Medicine Rik Barclay MD 08/12/2017 Orders Only Internal Medicine Darlin Cardona MA 08/09/2017 Office Visit Internal Medicine Rik Barclay MD Encounter for general adult medical examination with abnormal findings (Primary Dx); Essential hypertension; Essential tremor; Rheumatoid arthritis involving multiple sites with positive rheumatoid factor; Trochanteric bursitis of left hip; Erectile dysfunction, unspecified erectile dysfunction type; Screening cholesterol level 06/02/2017 Refill Internal Rik Davenport MD 05/29/2017 Refill Internal Medicine Rik Barclay MD 03/16/2017 Refill Internal Medicine Darlin Cardona MA 03/12/2017 Refill Internal Medicine Darlin Cardona MA 01/01/2017 Hospital Radiology Alison Reynolds MD Myelopathy Encounter 01/01/2017 [facility] Radiology Alison Reynolds MD Lumbar radiculopathy; Encounter Myelopathy 01/01/2017 Hospital Radiology Alison Reynolds MD Lumbar radiculopathy; Encounter Myelopathy 12/31/2016 Ancillary Access Alison Reynolds MD Myelopathy Orders 12/28/2016 Procedure Pass Radiology 12/28/2016 Transcribe Access Alison Reynolds MD Lumbar radiculopathy Orders (Primary Dx); Myelopathy 12/21/2016 [facility] Radiology Rik Barclay MD Pseudoclaudication Encounter 12/10/2016 Procedure Pass Radiology 12/10/2016 Orders Only Internal Medicine Rik Barclay MD Pseudoclaudication (Primary Dx) after 12/06/2016 Immunizations Name Dates Previously Given Next Due FLUZONE HIGH-DOSE PF 12/06/2016, 10/31/2015, 01/06/2015, 12/05/2013 Pneumococcal Conjugate 04/22/2015 13-Valent Pneumococcal 07/28/2016 Polysaccharide Family History Medical History Relation Name Comments Diabetes Father Heart disease Father Dementia Maternal Grandmother Dementia Mother Diabetes Paternal Grandmother COPD Sister Lung disease Sister Macular degeneration Sister Other Sister brain cyst Relation Name Status Comments Father Maternal Grandfather Maternal Grandmother Mother Paternal Grandfather Paternal Grandmother Sister Sister Alive Social History Tobacco Use Types Packs/Day Years Used Date Never Smoker Smokeless Tobacco: Never Used Sex Assigned at Date Recorded Not on file Last Filed Vital Signs Vital Sign Reading Time Taken Blood Pressure 150/91 08/09/2017 4:42 PM CDT Pulse 78 08/09/2017 4:42 PM CDT Temperature - - Respiratory Rate - - Oxygen Saturation - - Inhaled Oxygen - - Concentration Weight 77.3 kg (170 lb 6.4 oz) 08/09/2017 4:42 PM CDT Height 180.3 cm (5' 11") 08/09/2017 4:42 PM CDT Body Mass Index 23.77 08/09/2017 4:42 PM CDT Plan of Treatment Health Maintenance Due Date Last Done Comments SHINGRIX VACCINE (#1) 07/26/1995 ZOSTER VACCINE 2005 INFLUENZA VACCINE 10/06/2017 12/06/2016, 12/06/2016, 10/31/2015, Additional history exists COLON CANCER SCREENING 10/06/2021 10/06/2016, 06/11/2016, 11/03/2015 PNEUMOCOCCAL-13 Completed 04/22/2015, 04/22/2015 PNEUMOCOCCAL Completed 07/28/2016 POLYSACCHARIDE VACCINE AGE 65 AND OVER Procedures Procedure Name Priority Date/Time Associated Diagnosis Comments MISCELLANSOUS IMAGING Routine 09/10/2017 RESULT 12:00 AM CDT TESTOSTERONE LEVEL, FREE Routine 08/09/2017 Erectile dysfunction, Results for this AND TOTAL, MALE 5:24 PM CDT unspecified erectile procedure are in the dysfunction type results section. URINALYSIS, COMPLETE, Routine 08/09/2017 Essential hypertension Results for this WITH REFLEX TO CULTURE 5:24 PM CDT procedure are in the results section. LDL CHOLESTEROL, DIRECT Routine 08/09/2017 Screening cholesterol Results for this 5:24 PM CDT level procedure are in the results section. HDL CHOLESTEROL Routine 08/09/2017 Screening cholesterol Results for this 5:24 PM CDT level procedure are in the results section. CHOLESTEROL Routine 08/09/2017 Screening cholesterol Results for this 5:24 PM CDT level procedure are in the results section. COMPREHENSIVE METABOLIC Routine 08/09/2017 Essential hypertension Results for this PANEL 5:24 PM CDT procedure are in the results section. CBC WITH PLATELET AND Routine 08/09/2017 Essential hypertension Results for this DIFFERENTIAL 5:24 PM CDT procedure are in the results section. MRI CERVICAL SPINE WO Routine 01/01/2017 Myelopathy Results for this CONTRAST 2:58 PM CDT procedure are in the results section. CT LUMBAR SPINE WO Routine 01/01/2017 Lumbar radiculopathy Results for this CONTRAST 2:35 PM CDT Myelopathy procedure are in the results section. XR LUMBAR SPINE COMPLETE Routine 01/01/2017 Lumbar radiculopathy Results for this W BENDING 1:48 PM CDT Myelopathy procedure are in the results section. MRI LUMBAR SPINE WO Routine 12/21/2016 Pseudoclaudication Results for this CONTRAST 2:45 PM CDT procedure are in the results section. after 12/06/2016 Results * Miscellaneous Imaging Result (09/10/2017) Specimen Blood Narrative Performed At * URINALYSIS, COMPLETE, WITH REFLEX TO CULTURE (08/09/2017 5:24 PM) Color, UA YELLOW YELLOW [facility] [place] Appearance CLEAR CLEAR [facility] [place] Specific gravity, urine 1.025 1.001 - 1.035 [facility] [place] pH, urine 6.0 5.0 - 8.0 [facility] [place] Glucose, urine NEGATIVE NEGATIVE [facility] [place] Bilirubin, UA NEGATIVE NEGATIVE [facility] [place] Ketones, UA NEGATIVE NEGATIVE [facility] [place] Occult blood, urine NEGATIVE NEGATIVE [facility] [place] Protein, UA NEGATIVE NEGATIVE [facility] [place] Nitrite, UA NEGATIVE NEGATIVE [facility] [place] Leukocyte esterase, UA NEGATIVE NEGATIVE [facility] [place] WBC, UA NONE SEEN < OR=5 /HPF [facility] [place] RBC, UA 0-2 < OR=2 /HPF [facility] [place] Squamous epithelial NONE SEEN < OR=5 /HPF [facility] cells, [facility] [place] Bacteria, UA NONE SEEN NONE SEEN /HPF [facility] [place] Hyaline casts, UA NONE SEEN NONE SEEN /LPF [facility] [place] Reflex NO CULTURE INDICATED [facility] [place] Narrative Performed At FASTING:NO [facility] FASTING: NO Other Results Text Performing Organization Information: Site ID: [id number] Name: [facility] Lab Address: [address] [place] [phone] Director: Shira Quijano Performing Organization Address City/State/Zipcode Phone Number [facility] [place] [phone] * CBC with platelet and differential (08/09/2017 5:24 PM) WBC 12.4 (H) 3.8 - 10.8 Thousand/uL [facility] [place] RBC 5.38 4.20 - 5.80 Million/uL [facility] [place] HGB 15.5 13.2 - 17.1 g/dL [facility] [place] HCT 47.0 38.5 - 50.0 % [facility] [place] MCV 87.4 80.0 - 100.0 fL [facility] [place] MCH 28.8 27.0 - 33.0 pg [facility] [place] MCHC 33.0 32.0 - 36.0 g/dL [facility] [place] RDW 16.6 (H) 11.0 - 15.0 % [facility] [place] Platelet count 205 140 - 400 Thousand/uL [facility] Comment: [place] Review of the peripheral smear reveals adequate numbers of platelets. MPV 9.7 7.5 - 12.[address] [facility] Neutrophils, absolute 9,337 (H) 1,500 - 7,800 cells/uL [facility] [place] Lymphocytes, absolute 1,364 850 - 3,900 cells/uL [facility] [place] Monocytes, absolute 1,302 (H) 200 - 950 cells/uL [facility] [place] Eosinophils, absolute 285 15 - 500 cells/uL [facility] [place] Basophils, absolute 112 0 - 200 cells/uL [facility] [place] Neutrophils 75.3 % [facility] Lymphocytes 11.0 % [facility] Monocytes 10.5 % [facility] Eosinophils 2.3 % [facility] Basophils + RC 0.9 % [facility] [place] Nucleated RBC Comment: [facility] Review of peripheral smear [place] confirms automated results. Specimen Blood Narrative Performed At FASTING:NO [facility] FASTING: NO Other Results Text Performing Organization Information: Site ID: [id number] Name: [facility] Lab Address: [address] [place] [phone] Director: Shira Quijano Performing Organization Address [facility] Phone Number [facility] [address] [phone] * Testosterone level, free and total, male (08/09/2017 5:24 PM) Testosterone, total, 370 250 - 1,100 ng/dL [facility] lc/ms/ms Comment: NEAL TARN Males: Men with clinically significant hypogonadal symptoms and testosterone values repeatedly in the range of the 200-300 ng/dL or less, may benefit from testosterone treatment after adequate risk and benefits counseling. Testosterone, free 45.9 30.0 - 135.0 pg/mL [facility] Comment: NE[place] TRAN This test was developed and its analytical performance characteristics have been determined by [facility]. It has not been cleared or approved by the US Food and Drug Administration. This assay has been validated pursuant to the CLIA regulations and is used for clinical purposes. Specimen Blood Narrative Performed At FASTING:NO [facility] FASTING: NO Other Results Text Performing Organization Information: Site ID: [id number] Name: [facility] Address: [address] [place] [address] Director: Barber Murray M.D., Ph.D Performing Organization Address City/[facility]/Zipcode Phone Number [facility] [place] [phone] [place] [address] RAU[place] * LDL cholesterol, direct (08/09/2017 5:24 PM) LDL Direct 130 (H) <100 mg/dL [facility] Comment: [place] Greatly elevated Triglycerides values (>1200 mg/dL) interfere with the dLDL assay. As no Triglycerides testing was ordered, interpret results with caution. Desirable range <100 mg/dL for primary prevention; <70 mg/dL for patients with CHD or diabetic patients with > or=2 CHD risk factors. Specimen Blood Narrative Performed At FASTING:NO [facility] FASTING: NO Other Results Text Performing Organization Information: Site ID: [id number] Name: [facility] Address: [address] [place] [phone] Director: Shira Quijano Performing Organization Address [facility] Phone Number [place] [address] * HDL cholesterol (08/09/2017 5:24 PM) HDL cholesterol 47 >40 mg/dL [facility] [place] Specimen Blood Narrative Performed At FASTING:NO [facility] FASTING: NO Other Results Text Performing Organization Information: Site ID: [id number] Name: [facility] Address: [address] [place] [phone] Director: Shira Quijano Performing Organization Address [facility] Phone Number [place] [address] * Cholesterol (08/09/2017 5:24 PM) Cholesterol, total 217 (H) <200 mg/dL [facility] [place] Specimen Blood Narrative Performed At FASTING:NO [facility] FASTING: NO Other Results Text Performing Organization Information: Site ID: [id number] Name: [facility] Address: [address] [place] [phone] Director: Shira Quijano Performing Organization Address [facility] Phone Number [place] [address] * Comprehensive metabolic panel (08/09/2017 5:24 PM) Glucose 96 65 - 139 mg/dL [facility] Comment: [place] Non-fasting reference interval BUN, whole blood 33 (H) 7 - 25 mg/dL [facility] Creatinine 2.22 (H) 0.70 - 1.18 mg/dL [facility] Comment: [place] For patients >49 years of age, the reference limit for Creatinine is approximately 13% higher for people identified as -Fijian. EGFR Non-Afr. [place]ian 29 (L) > OR=60 mL/min/1.73m2 [facility] [place] EGFR 33 (L) > OR=60 mL/min/1.73m2 [facility] BUN/creatinine ratio 15 6 - 22 (calc) [facility] Sodium 141 135 - 146 mmol/L [facility] Potassium 4.3 3.5 - 5.3 mmol/L [facility] Chloride 103 98 - 110 mmol/L [facility] CO2 31 20 - 31 mmol/L [facility] [place] Calcium 10.1 8.6 - 10.3 mg/dL [facility] [place] Protein 6.3 6.1 - 8.1 g/dL [facility] Albumin, S 4.1 3.6 - 5.1 g/dL [facility] Globulin, total 2.2 1.9 - 3.7 g/dL (calc) [facility] Albumin/globulin ratio 1.9 1.0 - 2.5 (calc) [facility] Total bilirubin 0.5 0.2 - 1.2 mg/dL [facility] Alkaline phosphatase 49 40 - 115 U/L [facility] AST 21 10 - 35 U/L [facility] ALT 25 9 - 46 U/L [facility] Specimen Blood Narrative Performed At FASTING:NO [facility] FASTING: NO Other Results Text Performing Organization Information: Site ID: [id number] Name: [facility] Lab Address: [address] [place] [phone] Director: Shira Quijano Performing Organization Address City/State/[place] [phone] * MRI Cervical Spine Wo Contrast (01/01/2017 2:58 PM) Narrative Performed At [facility] EXAMINATION:MRI CERVICAL SPINE WO CONTRAST CLINICAL HISTORY:G95.9 Disease of spinal cordunspecified, M54.16G95.9 COMPARISON: None. FINDINGS: Noncontrast MRI of the cervical spine is interpreted. There is elevated T2 signal in the farooq which likely represents chronic small vessel ischemic change. The cervical cord is normal in volume and signal intensity. There is slight reversal normal cervical lordosis. Bone marrow signal is within normal limits. There is mild arthrosis of the median atlantoaxial joint. C2-3: Moderate left facet arthrosis with mild left foraminal stenosis. C3-4: Slight grade 1 anterolisthesis. Moderate left facet arthrosis. Moderate left foraminal stenosis. C4-5: Prominent loss of disc height with mild grade 1 retrolisthesis. Anterior endplate spurring. Mild uncovertebral hypertrophy on the right. Mild right foraminal stenosis. Mild canal narrowing. C5-6: Moderate spondylosis with grade 1 retrolisthesis. Mild canal stenosis with flattening of ventral cord contour. Subarachnoid space is preserved. Suspicion for shallow superimposed central disc protrusion. Mild bilateral foraminal stenosis. C6-7: Moderate loss of disc height. Mild endplate spurring. C7-T1: Mild right facet arthrosis. Slight grade 1 anterolisthesis. The paraspinous soft tissues are unremarkable. IMPRESSION: Moderate cervical spondylosis. No significant canal or foraminal stenosis. The cervical cord is normal in volume and signal intensity. [facility]-[id number] Procedure Note [facility], Radiology Results Incoming - 01/01/2017 3:41 PM CDT EXAMINATION: MRI CERVICAL SPINE WO CONTRAST CLINICAL HISTORY: G95.9 Disease of spinal cord unspecified, M54.16 G95.9 COMPARISON: None. FINDINGS: Noncontrast MRI of the cervical spine is interpreted. There is elevated T2 signal in the farooq which likely represents chronic small vessel ischemic change. The cervical cord is normal in volume and signal intensity. There is slight reversal normal cervical lordosis. Bone marrow signal is within normal limits. There is mild arthrosis of the median atlantoaxial joint. C2-3: Moderate left facet arthrosis with mild left foraminal stenosis. C3-4: Slight grade 1 anterolisthesis. Moderate left facet arthrosis. Moderate left foraminal stenosis. C4-5: Prominent loss of disc height with mild grade 1 retrolisthesis. Anterior endplate spurring. Mild uncovertebral hypertrophy on the right. Mild right foraminal stenosis. Mild canal narrowing. C5-6: Moderate spondylosis with grade 1 retrolisthesis. Mild canal stenosis with flattening of ventral cord contour. Subarachnoid space is preserved. Suspicion for shallow superimposed central disc protrusion. Mild bilateral foraminal stenosis. C6-7: Moderate loss of disc height. Mild endplate spurring. C7-T1: Mild right facet arthrosis. Slight grade 1 anterolisthesis. The paraspinous soft tissues are unremarkable. IMPRESSION: Moderate cervical spondylosis. No significant canal or foraminal stenosis. The cervical cord is normal in volume and signal intensity. [facility]-[id number] Performing Organization Address City/State/Zipcode Phone Number [facility] [phone] [place] [address] * CT Lumbar Spine Wo Contrast (01/01/2017 2:35 PM) Narrative Performed At EXAMINATION:CT LUMBAR SPINE WO CONTRAST [facility] CLINICAL HISTORY:M54.16 Radiculopathylumbar region, G95.9 Disease of spinal cordunspecified, M54.16G95.9 COMPARISON: MRI lumbar spine dated 12/21/2016. Lumbar spine series dated 01/01/2017. FINDINGS: Noncontrast CT lumbar spine is interpreted. CT imaging was performed with iterative reconstruction techniques and/or automated exposure control to reduce radiation dose. Evaluation of the canal contents is limited by the absence of intrathecal contrast. Lumbar vertebral heights are preserved. No displaced fracture is seen. Again noted are interbody fusions at L3-4 and L4-5. Bridging of bone is not definitely seen across the interbody space at L3-4. Bone bridging the interbody space at L4-5 is present. There are facetectomies on the left at L3-4 and L4-5 as well as on the right at L4-5 and partially at L3-4. L1-2: Unremarkable. L2-3: Unremarkable. L3-4: Postoperative changes as described. Mild right foraminal stenosis. L4-5: Postoperative level. Mild right foraminal stenosis. L5-S1: Prominent loss of disc height. Disc vacuum phenomenon. Mild endplate irregularity. Minimal dorsal endplate spurring. Mild bilateral foraminal stenosis. There is deconditioning the paraspinous musculature. There is atrophy of the right kidney. Atherosclerotic calcifications are present within the abdominal aorta. IMPRESSION: Mild lumbar spondylosis without significant canal or foraminal stenosis. Postoperative changes of interbody fusions and facetectomies at L3-4 and L4-5. No definite bridging bone is identified at the L3-4 interbody space. Bone does bridge the interbody space at L4-5. [facility]-[id number] Procedure Note [facility] Interface, Radiology Results Incoming - 01/01/2017 4:56 PM CDT EXAMINATION: CT LUMBAR SPINE WO CONTRAST CLINICAL HISTORY: M54.16 Radiculopathy lumbar region, G95.9 Disease of spinal cord unspecified, M54.16 G95.9 COMPARISON: MRI lumbar spine dated 12/21/2016. Lumbar spine series dated 01/01/2017. FINDINGS: Noncontrast CT lumbar spine is interpreted. CT imaging was performed with iterative reconstruction techniques and/or automated exposure control to reduce radiation dose. Evaluation of the canal contents is limited by the absence of intrathecal contrast. Lumbar vertebral heights are preserved. No displaced fracture is seen. Again noted are interbody fusions at L3-4 and L4-5. Bridging of bone is not definitely seen across the interbody space at L3-4. Bone bridging the interbody space at L4-5 is present. There are facetectomies on the left at L3-4 and L4-5 as well as on the right at L4-5 and partially at L3-4. L1-2: Unremarkable. L2-3: Unremarkable. L3-4: Postoperative changes as described. Mild right foraminal stenosis. L4-5: Postoperative level. Mild right foraminal stenosis. L5-S1: Prominent loss of disc height. Disc vacuum phenomenon. Mild endplate irregularity. Minimal dorsal endplate spurring. Mild bilateral foraminal stenosis. There is deconditioning the paraspinous musculature. There is atrophy of the right kidney. Atherosclerotic calcifications are present within the abdominal aorta. IMPRESSION: Mild lumbar spondylosis without significant canal or foraminal stenosis. Postoperative changes of interbody fusions and facetectomies at L3-4 and L4-5. No definite bridging bone is identified at the L3-4 interbody space. Bone does bridge the interbody space at L4-5. [facility] [id number] Performing Organization Address City/State/Zipcode Phone Number [facility] [address] [place] [address] * XR Lumbar Spine Complete W Flex and Ext (01/01/2017 1:48 PM) Narrative Performed At EXAMINATION: XR LUMBAR SPINE COMPLETE W FLEX & EXTEND [facility] CLINICAL HISTORY: M54.16 Radiculopathylumbar region, G95.9 Disease of spinal cordunspecified, M54.16G95.9 COMPARISON:None IMPRESSION: 8 views of lumbar spine including dynamic lateral radiographs are submitted. There is convex left scoliotic curvature of the thoracolumbar region with a Cuevas measuring approximately 20 degrees spanning T10-L2. A mild rotational component is present. There are interbody fusions of L3-4 and L4-5 with metallic interbody cages present. Interbody fusions appear immature. Prominent disc degenerative changes are noted at L5-S1. Vertebral heights are preserved. No displaced fracture is seen. Alignment is anatomic. There is no significant change in alignment on dynamic lateral radiographs. Range of motion is somewhat limited. [id number] Procedure Note Interface, Radiology Results Incoming - 01/01/2017 2:48 PM CDT EXAMINATION: XR LUMBAR SPINE COMPLETE W FLEX & EXTEND CLINICAL HISTORY: M54.16 Radiculopathy lumbar region, G95.9 Disease of spinal cord unspecified, M54.16 G95.9 COMPARISON: None IMPRESSION: 8 views of lumbar spine including dynamic lateral radiographs are submitted. There is convex left scoliotic curvature of the thoracolumbar region with a Cuevas measuring approximately 20 degrees spanning T10-L2. A mild rotational component is present. There are interbody fusions of L3-4 and L4-5 with metallic interbody cages present. Interbody fusions appear immature. Prominent disc degenerative changes are noted at L5-S1. Vertebral heights are preserved. No displaced fracture is seen. Alignment is anatomic. There is no significant change in alignment on dynamic lateral radiographs. Range of motion is somewhat limited. 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 FINDINGS: L5-S1: There is marked disc space narrowing, spondylosis and degenerative change in the disc. There are postoperative laminotomy changes on the left. There is mild dorsal spondylosis and bulging of the disc with possible minimal central disc protrusion. There is also minimal extension of the disc into the inferior neural foramen on the left where there could be a minimal inferior foraminal disc protrusion. There is very mild foraminal narrowing on the left. There is slight posterior positioning of the S1 nerve root on the left compared the right with a larger root sleeve complex on the left compared to the right but there is no definite nerve root compression demonstrated. The posterior positioning of the left S1 nerve root sleeve complex may relate to postoperative change as there is no definite structure displacing the root sleeve complex. There is mild degenerative change in the facet joints. L4-5: There are postop changes with threaded cage devices in the disc space bilaterally. There are postoperative laminotomy changes greater on the left. Facet joint on the left has been partially resected. There are otherwise degenerative changes in the facet joints bilaterally which may actually be fused. There is considerable metal artifact. There is grade 1 spondylolisthesis of L4 relation L5. There is no thecal sac stenosis. The neural foramen on the right is not well demonstrated because of artifact. There is no foraminal stenosis on the left side. L3-4: There are postop changes with bilateral threaded cage devices in the disc space. There are postoperative laminotomy changes bilaterally and partial resection of the facet joint at least on the left side. The neural foramen on the right is obscured by metal artifact. There is an appearance of mild foraminal stenosis on the right although this may be over exaggerated. There is no spinal canal or left foraminal stenosis. There is question of minimal spondylolisthesis of L3 in relation L4. L2-3 and L1-2: There is some loss of normal signal intensity in the discs at these levels. There are minimal hypertrophic changes the facet joints. There is no stenosis. Imaging of the thoracolumbar junction in the sagittal plane only demonstrates marked disc space narrowing, spondylosis and degenerative change in the disc at T11-12 where there is a minimal disc bulge without stenosis. There is no evidence of a conus lesion. IMPRESSION: Postoperative and degenerative changes as described above. There is no spinal stenosis demonstrated. There is a suggestion of at least mild foraminal stenosis on the right at L3-4 although this may be over exaggerated due to metal artifact. There is very mild foraminal narrowing on the left at L5-S1. [facility]-[id number] Procedure Note Hm Interface, Radiology Results Incoming - 12/21/2016 3:29 PM CDT EXAMINATION: MRI LUMBAR SPINE WO CONTRAST CLINICAL HISTORY: M48.062 Spinal stenosis lumbar region with neurogenic claudication, pseudoclaudication. Lumbosacral radiculopathy COMPARISON: None. FINDINGS: L5-S1: There is marked disc space narrowing, spondylosis and degenerative change in the disc. There are postoperative laminotomy changes on the left. There is mild dorsal spondylosis and bulging of the disc with possible minimal central disc protrusion. There is also minimal extension of the disc into the inferior neural foramen on the left where there could be a minimal inferior foraminal disc protrusion. There is very mild foraminal narrowing on the left. There is slight posterior positioning of the S1 nerve root on the left compared the right with a larger root sleeve complex on the left compared to the right but there is no definite nerve root compression demonstrated. The posterior positioning of the left S1 nerve root sleeve complex may relate to postoperative change as there is no definite structure displacing the root sleeve complex. There is mild degenerative change in the facet joints. L4-5: There are postop changes with threaded cage devices in the disc space bilaterally. There are postoperative laminotomy changes greater on the left. Facet joint on the left has been partially resected. There are otherwise degenerative changes in the facet joints bilaterally which may actually be fused. There is considerable metal artifact. There is grade 1 spondylolisthesis of L4 relation L5. There is no thecal sac stenosis. The neural foramen on the right is not well demonstrated because of artifact. There is no foraminal stenosis on the left side. L3-4: There are postop changes with bilateral threaded cage devices in the disc space. There are postoperative laminotomy changes bilaterally and partial resection of the facet joint at least on the left side. The neural foramen on the right is obscured by metal artifact. There is an appearance of mild foraminal stenosis on the right although this may be over exaggerated. There is no spinal canal or left foraminal stenosis. There is question of minimal spondylolisthesis of L3 in relation L4. L2-3 and L1-2: There is some loss of normal signal intensity in the discs at these levels. There are minimal hypertrophic changes the facet joints. There is no stenosis. Imaging of the thoracolumbar junction in the sagittal plane only demonstrates marked disc space narrowing, spondylosis and degenerative change in the disc at T11-12 where there is a minimal disc bulge without stenosis. There is no evidence of a conus lesion. IMPRESSION: Postoperative and degenerative changes as described above. There is no spinal stenosis demonstrated. There is a suggestion of at least mild foraminal stenosis on the right at L3-4 although this may be over exaggerated due to metal artifact. There is very mild foraminal narrowing on the left at L5-S1. [id number] Performing Organization Address City/State/Zipcode Phone Number [facility] [address] [place] [address] after 12/06/2016 Insurance Payer Benefit Subscriber ID Type Phone Address Plan / Group [employer] MED[employer]ARE HU[employer]NA xxxxxxxxx PPO MEDICARE PPO/PFFS/[place] [address]
== END 2017-12-11 10:56 | disposition home or self-care (01) | DRG 603 ==
LOC: MED/SURG3 17:59
PROVIDERS: ADMIT Internal Medicine Infectious Disease; ATTEND Internal Medicine Infectious Disease
PROC: 0JBN0ZX Excision of Right Lower Leg Subcutaneous Tissue and Fascia, Open Approach, Diagnostic (ICD-10-PCS; principal; 2017-12-10 13:30)
DX: L03.115 Cellulitis of right lower limb (principal); B36.8 Other specified superficial mycoses; Z79.899 Other long term (current) drug therapy; I10 Essential (primary) hypertension; I25.10 Atherosclerotic heart disease of native coronary artery without angina pectoris; L82.0 Inflamed seborrheic keratosis; M47.9 Spondylosis, unspecified; M06.9 Rheumatoid arthritis, unspecified; Z95.5 Presence of coronary angioplasty implant and graft; I12.9 Hypertensive chronic kidney disease with stage 1 through stage 4 chronic kidney disease, or unspecified chronic kidney disease; N18.9 Chronic kidney disease, unspecified
CPT/HCPCS: 36415; 80048; 80053; 80202; 85025; 87071; 87102; 87116; 87205; 87206; 88305; 96367; J0692; J2250; J2405; J3370; J7050; J7512